=== PATIENT | female | born 1970 | race Two or more races ===

== ENCOUNTER 2024-09-15 08:59 | Outpatient (AMB) | payer MEDICAID, SELFPAY ==
--- NOTE | 2024-09-15 09:01 | ACNOTE_ITS ---
Vital Signs 09/15/24 09:05 Weight 57.663 kg Weight Measurement Method Standing Scale BP 115/62 Blood Pressure Source Automatic Cuff Blood Pressure Location Left Upper Arm Position Sitting Respiration 18 Pulse 85 Pulse Source Monitor Temp 97.7 F Temp Source Oral Pulse Oximetry (%) 97 Oxygen Delivery Method Room Air Allergies/Meds Allergies & Medications Allergies No Known Allergies Allergy (Verified 09/15/24 09:05) Medication Reconciliation flash glucose scanning reader (FreeStyle Fortino 2 Brawley) #1 ea 06/11/24 [Rx Confirmed 09/15/24] flash glucose sensor (FreeStyle Fortino 2 Sensor kit) #2 ea 06/11/24 [Rx Confirmed 09/15/24] blood pressure test kit-medium #1 ea 06/16/24 [Rx Confirmed 09/15/24] blood sugar diagnostic (FreeStyle Lite Strips) #100 ea 06/16/24 [Rx Confirmed 09/15/24] dapagliflozin propanediol 10 mg tablet (Farxiga) 10 mg PO QAM Diabetes #30 tabs 06/16/24 [Rx Confirmed 09/15/24] pen needle, diabetic 29 gauge x 1/2 #100 ea 07/13/24 [Rx Confirmed 09/15/24] tamsulosin 0.4 mg capsule 0.4 mg PO QDAY neprolithiasis 1 month #30 caps 07/13/24 [Rx Confirmed 09/15/24] atorvastatin 40 mg tablet 40 mg PO QPM hyperlipidemia #30 tabs 09/15/24 [Rx] insulin glargine 100 unit/mL (3 mL) subcutaneous pen (Basaglar KwikPen U-100 Insulin) 30 unit (0.3 mL) subcut QPM #15 mL 09/15/24 [Rx] insulin lispro 100 unit/mL subcutaneous pen 8 unit (0.08 mL) subcut TID Diabetes #15 mL 09/15/24 [Rx] lancets (Accu-Chek Softclix Lancets) #100 ea 09/15/24 [Rx] lisinopril 5 mg tablet 5 mg PO QDAY HTN with Diabetes #30 tabs 09/15/24 [Rx] pantoprazole 40 mg tablet,delayed release (Protonix) 40 mg PO QDAY GERD #30 tabs 09/15/24 [Rx] [place] Intake Visit Data Collection New Patient or Established: Established Patient (seen at [facility] within 3 years) Seen by Clinical Staff ONLY (RN/MA): No Pain Present Currently: No Pain scale:: 0 Pain Scale Used: Johnson-Madrigal/Numerical PCP or OBGYN visit in last 3 months: Yes Do You Feel Safe at Home: Yes Authorities Contacted: N/A Smoking Status Smoking Status: Never smoker Immunization / Flu Flu Vaccine in the Last 12 Months: No Flu Vaccine Exclusion Criteria: No Exclusion Criteria Past Medical History Past Medical History NEUROLOGIC: Negative Neurological Disorders or Seizures CARDIAC: Positive Cardiac Disorders and Hypercholesterolemia; Negative Congestive Heart Failure RESPIRATORY: Negative Chronic Obstructive Pulmonary Disease (COPD) GASTROINTESTINAL: Negative Gastrointestinal Disorders GENITOURINARY: Positive Renal Disease; Negative Genitourinary Disorders ENDOCRINE: Positive Endocrine Disorders and Diabetes Mellitus Type 2; Negative Diabetes Mellitus Type 1 HEMATOLOGIC: Negative Blood Disorders OTHER HISTORY: Negative Blood Transfusions, Blood Transfusion Reaction or Anesthesia Reactions Social History SMOKING STATUS: Smoking status: Never smoker ALCOHOL: Alcohol Intake: Never HOUSING: Housing: House LIVES WITH: Lives With: Family Patient Portal Questionaires Social History Living Situation History Housing: House Tobacco History Smoking Status: Never smoker Alcohol History Alcohol Intake: Never Domestic Abuse History Do You Feel Safe at Home: Yes Review of Systems Report any current symptoms Only answer those that you have currently: Past Medical History Past Medical History Have you ever been diagnosed with any of the following: Neurological Problems Seizures: No Cardiology Problems Hypercholesterolemia: Yes Congestive Heart Failure: No Respiratory Problems Chronic Obstructive Pulmonary Disease (COPD): No Genital/Urinary Problems Renal Disease: Yes Endocrine Problems Diabetes Mellitus Type 1: No Diabetes Mellitus Type 2: Yes Other Problems Blood Transfusions: No Blood Transfusion Reaction: No Anesthesia Reactions: No History of Present Illness HPI Narrative Patient is a 53 year old female with a past medical history of diabetes mellitus type II insulin dependent, hypertension, hyperlipidemia, and history of GERD who had a recent hospitalization in May 2024 for hydronephrosis with high grade obstruction s/p stent placement leading to septic shock and VENUS. Patient is returning for her 3 month follow up on diabetes mellitus type 2. Previous office visit, patient was sent with labs for follow up, but no labs were found through [employer] website or after calling company. Unable to verify patients A1c at this time. Patient stated he blood glucose in the AM is between 150-200s and after meals blood glucose spikes to 300s. Currently taking Glargine 20 units HS and Lispro 5 units w/ meals. Patient followed up with Dr. Delarosa for VENUS vs CKD and has a follow up visit September 2024. Patient's J stent has not been removed despite referral with Dr. Rey who is unable to follow up with patient due to insurance logistics, patient has [employer]i-César. Denied pain with urination. Denied hypoglycemic episodes such as increase perspiration, shaking or fatigue. Review of Systems Review of Systems Narrative Review of Systems: General appearance: NO weight change, NO fatigue, NO weakness, NO fever, NO chills, NO night sweats, No cough Skin: NO rash, NO itching, NO sores, NO moles HEENT: NO Trauma, NO nausea, NO vomiting, NO visual changes, NO blurry vision, NO double vision, NO tinnitus, NO vertigo, NO ear discharge, NO rhinorrhea, NO stuffiness, NO sneezing, NO allergy, NO epistaxis. NO Hoarseness, NO sore throat, NO swollen neck. Cardiac: NO Palpitations, NO dyspnea on exertion, NO orthopnea, NO paroxysmal nocturnal dyspnea, NO edema Respiratory: NO Shortness of Breath, NO Wheezing, NO Cough, NO Sputum, NO hemoptysis GI:NO appetite, NO nausea, NO vomiting, NO dysphagia, NO changes in bowel frequency, NO stool color, NO diarrhea, NO constipation, NO hemetemesis, NO hemorrhoids, NO melena, NO hematechezia, NO abdominal pain, NO jaundice Renal: NO frequency, NO hesitancy, NO urgency, NO hematuria, NO nocturia, NO incontinence MSK: NO muscle weakness, NO gout, NO arthritis, NO muscle stiffness Neuro: NO headaches, NO tremors, NO weakness, NO paralysis, NO seizures, NO loss of consciousness, NO numbness. Hem: NO anemia, NO easy bruising/bleeding, NO petechiae, NO purpura Endo: NO heat/cold intolerance, NO excessive sweating, NO polyuria, NO polydipsia, NO polyphagia, NO thyroid problems, NO diabetes Pysch: NO mood, NO anxiety, NO depression Objective/Exam Objective Laboratory: Vitals: BP 115/62, HR 85, RR 18 General Appearance: Alert and Orientated x3, well-nourished female who is sitting on exam room Thorax/Lungs: Symmetrical with good expansion. Chest and back non-tender. Lungs resonant to percussion. Breath sounds vesicular without crackles, wheezes, or rhonchi Cardiovascular/Peripheral Vascular: No jugular venous distention noted. S1 and S2 heart sounds regular, no murmurs or extra heart sounds auscultated. No peripheral edema noted. Abdomen: Bowel sounds are active. No tenderness to deep or light palpation. Assessment & Plan Diagnosis / Problem List (1) Diabetes mellitus type 2, insulin dependent: Status: Acute Assessment & Plan: Patient's blood glucose continues to be elevated with morning glucose readings between 150-200s and postprandial readings over 300. Plan: -Increase Glargine 20 units HS-->Glargine 30 Units -Increase meal Lispro 5 units HS-->Lispro 8 units -Cut back on Glargine to 25 units if morning glucose readings are low. (2) Nephrolithiasis: Status: Acute Assessment & Plan: Nephrolithiasis s/p J-stent of left kidney. Patient was unable to follow up with Dr. Rey due to insurance issues. Denied dysuria. Plan: -Stop Tamsulosin -Will need to find a new urology specialist in [place]. Will follow up with [facility] next week if we were able to find a specialists. (3) Acute kidney injury: Status: Acute Assessment & Plan: Likely resolved as patient followed up with Dr. Delarosa but no follow up labs. Plan: -new set of follow up labs given (4) GERD (gastroesophageal reflux disease): Status: Acute Qualifiers: Esophagitis presence: without esophagitis Qualified Code(s): K21.9 - Gastro-esophageal reflux disease without esophagitis Assessment & Plan: Renewed pantoprazole. (5) Hypertension associated with diabetes: Status: Acute Assessment & Plan: Office visit blood pressure 115/62. Denied headaches or blurry vision. Plan: -Continue Lisinopril 5 mg -Follow up with urine albumin-protein ratio Orders: Referrals Urology Mary Amanda MD N17.9 - Acute kidney failure, unspecified, N20.0 - Calculus of kidney Additional Assessment Plan Master Problem List Diabetes Mellitus Type 2 Insulin dependent Hyperlipidemia due to DM type 2 Hypterension associated w/ diabetes Nephrolithiasis Follow Up: -Labs Pending, CMP, CBC, Urine albumin-protein ratio, A1c, and lipid panel -Following Dr. Delarosa -Need to find Urologists. Health Maintenance: Physical Colonoscopy (age 50-75 yrs) Cervical Cancer Screening (age 21-65 years) Breast Cancer Screening (age 40-74 yrs ) - The patient's plan was discussed with attending Dr Yosef Amanda MD PGY1 Internal Medicine Attending note: I, Nahid Alcantara MD, attest that I was physically present for the barraza portions of the service and evaluated the patient with the resident and I reviewed and discussed the case with the resident and agree with the resident's findings and plans of care as documented above. Follow-up visit. I be self-care reviewed including diet, exercise, footcare, eye care. Previously ordered labs are not available today. Home glucose readings reviewed. We will titrate insulin based on these readings and order labs today. Patient was not able to follow-up with a urologist locally due to insurance issues. Still has stent of left kidney with nephrolithiasis. We will make a new referral today. Has follow-up with nephrology for VENUS, we will recheck renal function on repeat labs. Other issues as noted. Nahid Alcantara MD Physician Billing Established Patient Established Patient: E/M Level 3-CPT 96530 Office Procedures [facility] Level of Care Nursing/Assessment Patient Status: Established Patient Nursing Assessment/Reassessment: Medication Reconciliation, Update PMH in EMR and Vital Signs Coordination of Care: Complex Care and Chronic Disease 1-5, Education Complex Pt/Fam, Results/Orders obtained and Staff clarify orders Established Patient Charge Established Patient Point Assignment: 90 Established Patient Point Charge: EP Level 3 (80-115)
[2024-09-15 09:05] VITALS: BP 115/62; PULSE 85; RESP 18; TEMP 36.5; O2SAT 97
== END 2024-09-15 10:04 | disposition home or self-care (01) ==
LOC: HODAHC 08:59
PROVIDERS: Supervising Provider Internal Medicine
DX: E11.9 Type 2 diabetes mellitus without complications (principal); Z79.4 Long term (current) use of insulin; N20.0 Calculus of kidney; K21.9 Gastro-esophageal reflux disease without esophagitis; I15.2 Hypertension secondary to endocrine disorders; Z79.899 Other long term (current) drug therapy
CPT/HCPCS: 99213; G0463

== ENCOUNTER → 2024-12-06 | Outpatient (BNVA) | payer MEDICAID, SELFPAY | END | disposition home or self-care (01) | PROVIDERS: PCP Internal Medicine; Referring Provider Internal Medicine; Visit Provider Urology | DX: Z96.0 Presence of urogenital implants (principal); Z87.442 Personal history of urinary calculi; I10 Essential (primary) hypertension; E11.9 Type 2 diabetes mellitus without complications; Z79.4 Long term (current) use of insulin; K21.9 Gastro-esophageal reflux disease without esophagitis | CPT/HCPCS: 81003; 99212; G0463 ==

== ENCOUNTER 2024-12-08 11:05 | Day surgery (SDC) | payer MEDICAID, SELFPAY ==
[2024-12-07 15:27] VITALS: BMI 25.0
[2024-12-07 16:00] LABS: Alanine Aminotransferase 19 U/L (10-49); Albumin, Serum 3.9 gm/dL (3.5-5.0); Alkaline Phosphatase 115 U/L (46-116); Anion Gap 2 (7-16); Aspartate Amino Transferase 30 U/L (0-34); BUN/Creatinine Ratio 14 Ratio (12-20); Bilirubin,Total 0.2 mg/dL (0.3-1.2); Blood Urea Nitrogen 23 mg/dL (9-23); Calcium 9.1 mg/dL (8.3-10.6); Calcium (Corrected) 9.2 mg/dL (8.5-10.1); Carbon Dioxide 29.4 mMol/L (20.0-31.0); Chloride 103 mMol/L (98-107); Creatinine (Component) 1.6 mg/dL (0.6-1.3); Estimated Creatinine Clearance 35.7 mL/min (>60); Globulin 3.8 gm/dL (2.3-3.5); Glucose 338 mg/dL (74-106); Osmolality,Calculated 284 (275-295); Potassium 4.8 mMol/L (3.4-5.1); Sodium 134 mMol/L (136-145); Total Protein 7.7 gm/dL (5.7-8.2); eGFR 39 See Note
[2024-12-08] VITALS (8 sets, daily range): BP systolic 103–118; BP diastolic 56–74; PULSE 76–89; RESP 12–14; TEMP 36.2–36.5; O2SAT 96–100; BMI 24.9
--- NOTE | 2024-12-08 13:34 | XR_ITS ---
Examination: Left retrograde pyelogram with without KUB Fluoroscopy AP abdomen 3 views Exam date and time: December 08, 2024 1552 hours INDICATIONS: Renal sonogram June 08, 2024 moderate left hydronephrosis ureteral stent placement today TECHNIQUE AND FINDINGS: 3 spot fluoroscopic films of the abdomen Left ureteral stent satisfactory position Fluoroscopy 43 seconds radiation dose 8.75 milligray IMPRESSION: Left retrograde pyelogram as above
--- NOTE | 2024-12-08 15:01 | ESOP_ITS ---
Date of Procedure 12/08/24 Pre Op Diagnosis Left hydronephrosis status post left ureteral stent over 8 months ago history of recurrent UTI calcified stent Post Op Diagnosis Same Procedure Cystoscopic examination left retrograde pyelogram placement of left safety wire, removal of calcification around the stent in the bladder with the laser, removal of left ureteral stent,ureteroscopy and placement of left ureteral stent 24 cm long 6 Albanian double-J Findings Left hydronephrosis, calcification of distal portion of left ureteral stent in the bladder Procedure Description Indication for procedure this is a 54-year-old female she was admitted in the hospital more than 6 months ago with urosepsis had a placement of the stent she recently came to the office for removal of the stent. Since his stent was placed 8 months ago there is a possibility stent is calcified she was recommended above procedure procedure and complications were discussed with the patient in great detail informed consent is obtained Patient was brought to the operating room in a satisfactory condition after appropriate premedication which she was put on the operating table in a spine position she was appropriately identified by the surgeon and operating room staff site scope and indications of the procedure were reconfirmed with the patient. Next general anesthesia was given uneventfully at this time patient received perioperative antibiotics 20 mg of Lasix IV was given for prevention of pyelocalyceal infectious complication and diuresis. Next cystoscope was introduced into the bladder per urethra examination of bladder in all the quadrant was carried out she has calcification around the distal portion of the stent with the 200 ?m laser fiber I was able to remove the calcification around the distal portion of the stent. Next open-ended Pollick catheter was inserted into the left ureteral orifice I placed a safety wire there was a obstruction in the midportion of the ureter left side ultimately I was able to negotiate the safety wire and placed into the upper pole calyx. Stent was removed with a stent grasper. Next I used the semirigid ureteroscope other than inflammation in the mid ureter no stone was identified. Retrograde pyelogram revealed a left hydronephrosis this was done under fluoroscopic examination next ureteroscope was removed over the safety wire I placed 24 cm long 6 Albanian double-J proximal and in the renal pelvis distally in the bladder instrument was withdrawn gently patient after having tolerated the procedure well was sent to recovery room in a satisfactory condition. Patient disposition she is discharged home on pain medication and antibiotics she will follow-up with me in urology office in 2 weeks for stent removal and she will have an ultrasound of the kidneys done at that time Anesthesia GETA Pathology / specimen None Estimated Blood Loss 0.2 Condition Stable Disposition PACU Surgeon Dori Rey MD Surgical Staff Operation Date: 12/08/24 13:30 Case Staff Anesthesiologist: Torsten Chan
--- NOTE | 2024-12-08 15:02 | SUR.PHASEI ---
pt received from OR in recovery bay 8. pt asleep but responds to voice, breathing unlabored on 4l nc. v/s stable. report received from Dr. Chan and Martín GREEN.
--- NOTE | 2024-12-08 15:48 | SUR.PHASEII ---
pt able to tolerate oral fluids without difficulty swallowing or nasuea/vomiting.
--- NOTE | 2024-12-08 16:20 | SUR.PHASEII ---
pt awake and alert, breathing unlabored on room air. v/s stable. pt able to ambulate to wheelchair with steady gait. d/c instructions given with Alejandro in room, all questions answered. pt d/c via wheelchair with all belongings.
== END 2024-12-08 16:20 | disposition home or self-care (01) ==
PROVIDERS: Anesthesiology; PCP Family Medicine; Referring Provider Urology; Visit Provider Urology
PROC: 0TJB8ZZ Inspection of Bladder, Via Natural or Artificial Opening Endoscopic (ICD-10-PCS; CPT 52000; principal; 2024-12-08 13:15)
DX: N13.30 Unspecified hydronephrosis (principal); Z87.440 Personal history of urinary (tract) infections
CPT/HCPCS: 52332; 36415; 74420; 80053; A4217; A4649; C1769; C1889; C1894; C2617; J1100; J1580; J1940; J2704; J2710; J2765; J3010; J3370; J3490; J1596

== ENCOUNTER 2024-12-15 09:20 | Outpatient (AMB) | payer MEDICAID, SELFPAY ==
[2024-12-15 09:34] VITALS: BP 119/78; PULSE 87; RESP 16; TEMP 36.1; O2SAT 99
--- NOTE | 2024-12-15 09:34 | ACNOTE_ITS ---
Vital Signs 12/15/24 09:34 Weight 60.384 kg Weight Measurement Method Standing Scale BP 119/78 Blood Pressure Source Automatic Cuff Blood Pressure Location Left Upper Arm Position Sitting Respiration 16 Pulse 87 Pulse Source Monitor Temp 96.9 F Temp Source Temporal Artery Scan Pulse Oximetry (%) 99 Oxygen Delivery Method Room Air Allergies/Meds Allergies & Medications Allergies No Known Allergies Allergy (Verified 12/15/24 09:35) Medication Reconciliation insulin lispro 100 unit/mL subcutaneous pen (Admelog SoloStar U-100 Insulin lispro) 1 sliding scale dose subcut USEASDIRECTD 12/08/24 [History Confirmed 12/15/24] nitrofurantoin monohydrate/macrocrystals 100 mg capsule (Macrobid) 100 mg PO BID #10 caps 12/08/24 [Rx Confirmed 12/15/24] tramadol 50 mg tablet 50 mg PO Q8H PRN pain #14 tabs 12/08/24 [Rx Confirmed 12/15/24] atorvastatin 40 mg tablet 40 mg PO QPM hyperlipidemia #30 tabs 12/15/24 [Rx] dapagliflozin propanediol 5 mg tablet (Farxiga) 5 mg PO QAM #30 tabs 12/15/24 [Rx] insulin degludec 100 unit/mL (3 mL) subcutaneous pen 30 unit (0.3 mL) subcut QHS diabetes #15 mL 12/15/24 [Rx] lisinopril 5 mg tablet 5 mg PO QDAY HTN with Diabetes #30 tabs 12/15/24 [Rx] pantoprazole 40 mg tablet,delayed release (Protonix) 40 mg PO QDAY GERD #30 tabs 12/15/24 [Rx] pen needle, diabetic 31 gauge x 5/16 (Comfort EZ Pen Chadwick) #100 ea 12/15/24 [Rx] MA Intake Visit Data Collection New Patient or Established: Established Patient (seen at [facility] within 3 years) Seen by Clinical Staff ONLY (RN/MA): No Pain Present Currently: No Pain scale:: 0 Pain Scale Used: JohnsonCarlitos/Numerical Stakes Player Required: No PCP or OBGYN visit in last 3 months: Yes Hx Now: No Do You Feel Safe at Home: Yes Authorities Contacted: N/A Smoking Status Smoking Status: Never smoker Immunization / Flu Flu Vaccine in the Last 12 Months: No Flu Vaccine Exclusion Criteria: No Exclusion Criteria Past Medical History Past Medical History NEUROLOGIC: Negative Neurological Disorders or Seizures CARDIAC: Positive Cardiac Disorders, Hypercholesterolemia and Hypertension; Negative Peripheral Vascular Disease, Congestive Heart Failure or Varicose Veins RESPIRATORY: Negative Chronic Obstructive Pulmonary Disease (COPD) GASTROINTESTINAL: Negative Gastrointestinal Disorders GENITOURINARY: Positive Renal Disease and Kidney Stones; Negative Genitourinary Disorders REPRODUCTIVE: Positive Previous Pregnancies ENDOCRINE: Positive Endocrine Disorders and Diabetes Mellitus Type 2; Negative Diabetes Mellitus Type 1 HEMATOLOGIC: Negative Blood Disorders OTHER HISTORY: Positive Hospitalization; Negative Autoimmune Disease, Shingles, Blood Transfusions, Blood Transfusion Reaction, Anesthesia Reactions or Cancer Family History FAMILY HISTORY: Negative Family Psychiatric Problems, Family Respiratory Disorders, Family Cardiac Disorders, Family Gastrointestinal Problems, Family Cancer, Family Surgery or Family Anesthesia Reaction Social History SMOKING STATUS: Smoking status: Never smoker ALCOHOL: Alcohol Intake: Never HOUSING: Housing: House LIVES WITH: Lives With: Family Patient Virgil Cindyjez Social History Living Situation History Housing: House Tobacco History Smoking Status: Never smoker Alcohol History Alcohol Intake: Never Domestic Abuse History Do You Feel Safe at Home: Yes Review of Systems Report any current symptoms Only answer those that you have currently: Past Medical History Past Medical History Have you ever been diagnosed with any of the following: Neurological Problems Seizures: No Cardiology Problems Peripheral Vascular Disease: No Hypercholesterolemia: Yes Congestive Heart Failure: No Hypertension: Yes Varicose Veins: No Respiratory Problems Chronic Obstructive Pulmonary Disease (COPD): No Genital/Urinary Problems Renal Disease: Yes Kidney Stones: Yes Reproductive Problems Previous Pregnancies: Yes Endocrine Problems Diabetes Mellitus Type 1: No Diabetes Mellitus Type 2: Yes Other Problems Hospitalization: Yes Autoimmune Disease: No Shingles: No Blood Transfusions: No Blood Transfusion Reaction: No Anesthesia Reactions: No Cancer: No History of Present Illness HPI Narrative Patient is a 53 year old female with a past medical history of diabetes mellitus type II insulin dependent, hypertension, hyperlipidemia, and history of GERD who is following up on outpatient lab results for A1c, CBC, CMP, and Albumin- Creatine ratio. Patient returned to the office after multiple failed attempts to reach patient to schedule urology appointment in [place], patient eventually did lose initial appointment in [place] after she failed to return call. Patient stated she followed up with Dr. Delarosa for previous VENUS, now likely progressing into CKD based on most recent labs. Patient eventually was able to follow up with Dr. Rey (initial referral made in June of 2024) for left stent placed during a hospitalization in June of 2024. Per chart review from urology, patient had a cystoscopic examination with removal of calcifications around stent in the bladder w/ laser and left ureter stent removal followed by placement once agiPatient is a 53 year old female with a past medical history of diabetes mellitus type II insulin dependent, hypertension, hyperlipidemia, and history of GERD who is following up on outpatient labs from A1c, CBC, CMP, and Albumin-Creatine ratio. Patient returned to the office after multiple failed attempts to reach patient to schedule urology appointment in [place], patient eventually did lose initial appointment in [place] after she failed to return call. Patient stated she followed up with Dr. Delarosa for previous VENUS, now likely progressing into CKD based on most recent labs. Patient eventually was able to follow up with Dr. Rey (initial referral made in May of 2024) for left stent placed during a hospitalization in May of 2024. Per chart review from urology, patient had a cystoscopic examination with removal of calcifications around stent in the bladder w/ laser and left ureter stent removal followed by placement once again of new stent. Patient has a follow up appointment in December with Dr. Rey. Patient deneid any pain since procedure. Denied any dysuria. Denied blood in urine. Patient followed up with outpatient labs. Dated for September 2024, A1c 12.4. Patient continues to take Glargine at night 35 units and 10 units with meals. Fasting glucose of 244. Spoke at length that an A1c of 12.4 was elevated. Counseled on diet. Spoke of changes to medication from Glargine to Decludec starting dose of 30 units at night. Patient denied hypoglycemic episodes, lowest number is 88. Patient stated she was experiencing polydipsia and polyuria. Increased bread intake, spoke about reducing amount of flour and bread in diet. Restart Farxiga. Continues to take Lisinopril for hypertension and Atorvastatin for hyperlipidemia. Denied any dizziness or syncopal episodes. Review of Systems Review of Systems Narrative Review of Systems: General appearance: NO weight change, NO fatigue, NO weakness, NO fever, NO chills, NO night sweats, No cough Skin: NO rash, NO itching, NO sores, NO moles HEENT: NO Trauma, NO nausea, NO vomiting, NO visual changes, NO blurry vision, NO double vision, NO tinnitus, NO vertigo, NO ear discharge, NO rhinorrhea, NO stuffiness, NO sneezing, NO allergy, NO epistaxis. NO Hoarseness, NO sore throat, NO swollen neck. Cardiac: NO Palpitations, NO dyspnea on exertion, NO orthopnea, NO paroxysmal nocturnal dyspnea, NO edema Respiratory: NO Shortness of Breath, NO Wheezing, NO Cough, NO Sputum, NO hemoptysis GI:NO appetite, NO nausea, NO vomiting, NO dysphagia, NO changes in bowel frequency, NO stool color, NO diarrhea, NO constipation, NO hemetemesis, NO hemorrhoids, NO melena, NO hematechezia, NO abdominal pain, NO jaundice Renal: NO frequency, NO hesitancy, NO urgency, NO hematuria, NO nocturia, NO incontinence MSK: NO muscle weakness, NO gout, NO arthritis, NO muscle stiffness Neuro: NO headaches, NO tremors, NO weakness, NO paralysis, NO seizures, NO loss of consciousness, NO numbness. Hem: NO anemia, NO easy bruising/bleeding, NO petechiae, NO purpura Endo: NO heat/cold intolerance, NO excessive sweating, NO polyuria, NO polydipsia, NO polyphagia, NO thyroid problems, NO diabetes Pysch: NO mood, NO anxiety, NO depression Objective/Exam Narrative Physical exam: Vitals: T 96.9, BP 119/78, HR 87, RR 16 General Appearance: Alert and Orientated x3, well-nourished male who is sitting on exam room Thorax/Lungs: Symmetrical with good expansion. Chest and back non-tender. Lungs resonant to percussion. Breath sounds vesicular without crackles, wheezes, or rhonchi Cardiovascular/Peripheral Vascular: No jugular venous distention noted. S1 and S2 heart sounds regular, no murmurs or extra heart sounds auscultated. No peripheral edema noted. Abdomen: Bowel sounds are active. No tenderness to deep or light palpation. Foot Exam: sensation intact at the heel, near 1, 3, and 5 metatarsals. Assessment & Plan Diagnosis / Problem List (1) Diabetes mellitus type 2, insulin dependent: Status: Acute Assessment & Plan: Patient's fasting blood glucose readings have remained elevated at 200, 180, and 190. Fasting Glucose reading for September 2024-244 and Glucose reading in Nov 2024 of 338. A1c (Sep 2024) 12.4. Counseled patient on balanced diet. Added Farxiga 5 mg once daily. STOP Glargine, START Dgludec 30 units, and continue Lispro 10 units with meals. Goal of 80-130 for fasting glucose. Blood glucose after meals under 200. Plan: -Degludec 30 units at night -Lispor 10 units w/ meals -Farxiga 5 mg once a day -1 month follow up with fasting glucose numbers. -3 month follow up w/ CMP and A1c. (2) Stage 3b chronic kidney disease due to type 2 diabetes mellitus: Status: Acute Assessment & Plan: During previous hospital admission in May of 2024 for DKA and VENUS secondary to nephrolithiasis complicated by hydronephrosis, patient's GFR of 50 on discharge with improving Cr. Given greater than 6 months with minimal improvement of GFR, likely CKD secondary by diabetes mellitus and history of hydronephrosis, in addition, elevated albumin-cr ratio. Two previous labs since discharge show low GFR levels. September 2024 BUN 25, Cr 1.49, and GFR of 42 and 2024 BUN 23, Cr 1.6, and GFR 39-->BUN/Cr ratio 14.375. Plan: Farxiga 5 mg PO Qday Glucose management (3) Hypertension associated with diabetes: Status: Acute Assessment & Plan: Elevated Urine Albumin/Cr ratio of 50. Blood pressure 119/78 on this office visit. Patient denied dizziness or syncope. Plan: -Continue Lisinopril 5 mg (4) Nephrolithiasis: Status: Acute Assessment & Plan: Nephrolithiasis complicated by hydronephrosis s/p J-stent of left kidney. Patient had a pending referral with urology in [place], did not follow up in September. On December 08, 2024, patient was able to follow up with Dr. Rey and she had removal old stent and placement on new stent. Plan: -Following Dr. Rey -Follow up appointment scheduled for December 2024 (5) GERD (gastroesophageal reflux disease): Status: Acute Qualifiers: Esophagitis presence: without esophagitis Qualified Code(s): K21.9 - Gastro-esophageal reflux disease without esophagitis Assessment & Plan: Renewed pantoprazole. Plan: Continue Pantoprazole, reassess in February if needs to be D/C Plan Master Problem List Diabetes Mellitus Type 2 Insulin dependent Hyperlipidemia due to DM type 2 Hypterension associated w/ diabetes Nephrolithiasis Follow Up: -Follow up in 1 month on glucose numbers after starting Degludec; A1c and BMP for February 2025 -Following Dr. Delarosa Health Maintenance: Physical Colonoscopy (age 50-75 yrs) Cervical Cancer Screening (age 21-65 years) Breast Cancer Screening (age 40-74 yrs ) - The patient's plan was discussed with attending Dr Yosef Amanda MD PGY1 Internal Medicine Office Procedures [facility] Level of Care Nursing/Assessment Patient Status: Established Patient Nursing Assessment/Reassessment: Medication Reconciliation, Update PMH in EMR and Vital Signs Coordination of Care: Complex Care and Chronic Disease 1-5, Consent,records obtained, informed consent, Education Simp Pt/Fam and Staff clarify orders Established Patient Charge Established Patient Point Assignment: 85 Established Patient Point Charge: EP Level 3 (80-115)
== END 2024-12-15 10:24 | disposition home or self-care (01) ==
LOC: HODAHC 09:20
PROVIDERS: Supervising Provider Internal Medicine
DX: E11.22 Type 2 diabetes mellitus with diabetic chronic kidney disease (principal); I12.9 Hypertensive chronic kidney disease with stage 1 through stage 4 chronic kidney disease, or unspecified chronic kidney disease; N18.32 Chronic kidney disease, stage 3b; Z79.4 Long term (current) use of insulin; Z79.84 Long term (current) use of oral hypoglycemic drugs; K21.9 Gastro-esophageal reflux disease without esophagitis; E78.5 Hyperlipidemia, unspecified; N13.2 Hydronephrosis with renal and ureteral calculous obstruction
CPT/HCPCS: 99213; G0463

== ENCOUNTER → 2024-12-28 | Outpatient (BNVA) | payer MEDICAID, SELFPAY | END | disposition home or self-care (01) | PROVIDERS: PCP Family Medicine; Referring Provider Family Medicine; Visit Provider Urology | DX: N35.92 Unspecified urethral stricture, female (principal); Z96.0 Presence of urogenital implants; I10 Essential (primary) hypertension; E78.00 Pure hypercholesterolemia, unspecified; E11.9 Type 2 diabetes mellitus without complications | CPT/HCPCS: 52281; 81003; 96372; A4217; A4649; C1894; J1580; A9270 ==

== ENCOUNTER 2025-02-23 10:43 | Outpatient (AMB) | payer MEDICAID, SELFPAY ==
[2025-02-23 11:01] VITALS: BP 112/73; PULSE 87; RESP 18; TEMP 36.8; O2SAT 98; BMI 26.1
--- NOTE | 2025-02-23 11:01 | PD.RESCLINIC ---
Vital Signs 02/23/25 11:01 Height 5 ft 1.81 in Height Method Stated Weight 64.41 kg Weight Measurement Method Standing Scale BMI 26.1 BP 112/73 Blood Pressure Source Automatic Cuff Blood Pressure Location Right Upper Arm Position Sitting Respiration 18 Pulse 87 Pulse Source Monitor Temp 98.2 F Temp Source Temporal Artery Scan Pulse Oximetry (%) 98 Oxygen Delivery Method Room Air Allergies/Meds Allergies & Medications Allergies No Known Allergies Allergy (Verified 02/23/25 11:02) Medication Reconciliation atorvastatin 40 mg tablet 40 mg PO QHS #30 tabs 02/23/25 [Rx] azithromycin 500 mg tablet See Rx Instructions PO .COMPLEX #3 tabs 02/23/25 [Rx] dapagliflozin propanediol 5 mg tablet (Farxiga) 5 mg PO QAM #30 tabs 02/23/25 [Rx] insulin degludec 100 unit/mL (3 mL) subcutaneous pen 35 unit (0.35 mL) subcut QHS #15 mL 02/23/25 [Rx] insulin lispro 100 unit/mL subcutaneous pen 10 unit (0.1 mL) subcut TID #15 mL 02/23/25 [Rx] lisinopril 5 mg tablet 5 mg PO QDAY #30 tabs 02/23/25 [Rx] pantoprazole 40 mg tablet,delayed release 40 mg PO QDAY #30 tabs 02/23/25 [Rx] pen needle, diabetic 29 gauge x 1/2 (Comfort EZ Pen Leslie) #100 ea 02/23/25 [Rx] MA Intake Visit Data Collection New Patient or Established: Established Patient (seen at [facility] within 3 years) Seen by Clinical Staff ONLY (RN/MA): No Pain Present Currently: No Pain scale:: 0 Pain Scale Used: Johnson-Madrigal/Numerical Perforating Machine Operator Required: No PCP or OBGYN visit in last 3 months: No Hx Now: No Do You Feel Safe at Home: Yes Authorities Contacted: N/A Smoking Status Smoking Status: Never smoker Immunization / Flu Flu Vaccine in the Last 12 Months: No Flu Vaccine Exclusion Criteria: No Exclusion Criteria Past Medical History Past Medical History NEUROLOGIC: Negative Neurological Disorders or Seizures CARDIAC: Positive Cardiac Disorders, Hypercholesterolemia and Hypertension; Negative Peripheral Vascular Disease, Congestive Heart Failure or Varicose Veins RESPIRATORY: Negative Chronic Obstructive Pulmonary Disease (COPD) GASTROINTESTINAL: Negative Gastrointestinal Disorders GENITOURINARY: Positive Renal Disease and Kidney Stones; Negative Genitourinary Disorders REPRODUCTIVE: Positive Previous Pregnancies ENDOCRINE: Positive Endocrine Disorders and Diabetes Mellitus Type 2; Negative Diabetes Mellitus Type 1 HEMATOLOGIC: Negative Blood Disorders OTHER HISTORY: Positive Hospitalization; Negative Autoimmune Disease, Shingles, Blood Transfusions, Blood Transfusion Reaction, Anesthesia Reactions or Cancer Family History FAMILY HISTORY: Negative Family Psychiatric Problems, Family Respiratory Disorders, Family Cardiac Disorders, Family Gastrointestinal Problems, Family Cancer, Family Surgery or Family Anesthesia Reaction Social History SMOKING STATUS: Smoking status: Never smoker ALCOHOL: Alcohol Intake: Never HOUSING: Housing: House LIVES WITH: Lives With: Family Patient Portal [facility] Social History Living Situation History Housing: House Tobacco History Smoking Status: Never smoker Alcohol History Alcohol Intake: Never Domestic Abuse History Do You Feel Safe at Home: Yes Review of Systems Report any current symptoms Only answer those that you have currently: Past Medical History Past Medical History Have you ever been diagnosed with any of the following: Neurological Problems Seizures: No Cardiology Problems Peripheral Vascular Disease: No Hypercholesterolemia: Yes Congestive Heart Failure: No Hypertension: Yes Varicose Veins: No Respiratory Problems Chronic Obstructive Pulmonary Disease (COPD): No Genital/Urinary Problems Renal Disease: Yes Kidney Stones: Yes Reproductive Problems Previous Pregnancies: Yes Endocrine Problems Diabetes Mellitus Type 1: No Diabetes Mellitus Type 2: Yes Other Problems Hospitalization: Yes Autoimmune Disease: No Shingles: No Blood Transfusions: No Blood Transfusion Reaction: No Anesthesia Reactions: No Cancer: No History of Present Illness HPI Narrative Ms. Velez is a 54-year-old female with past medical history of type 2 insulin-dependent diabetes mellitus, hypertension, hyperlipidemia GERD, CKD stage III who came into the clinic for follow-up visit. She has recently been seen by her urologist Dr. Rey and had her ureteral stent removed and has a follow-up in June. She was scheduled for nephrology consultation with Dr. Delarosa in November but missed the appointment. Currently she is complaining of cough with sputum production that is yellow in color for the past 2 weeks. Denies any fever, nausea, vomiting, chills, dyspnea, changes in bowel habits or urinary habits. Patient is concerned in regards to her diabetes. Review of Systems Review of Systems Systems Reviewed: All systems reviewed, normal except as documented Objective/Exam Narrative Physical exam: GENERAL: Alert and oriented x 3. No acute distress. Well-nourished. EYES: EOMI. Anicteric. HEENT: Moist mucous membranes. No scleral icterus. No cervical lymphadenopathy. LUNGS: Very mild bilateral rhonchi. No accessory muscle use. CARDIOVASCULAR: Regular rate and rhythm. No murmur. No JVD. ABDOMEN: Soft, non-tender and non-distended. No palpable masses. EXTREMITIES: All 4 extremeties intact. No edema. Nontender. Able to feel pinprick sensation in bilateral feet. SKIN: No rashes or lesions. Warm. NEUROLOGIC: No focal neurological deficits. CN II-XII grossly intact, but not individually tested. PSYCHIATRIC: Cooperative. Appropriate mood and affect. Assessment & Plan Diagnosis / Problem List (1) Community acquired bacterial pneumonia: Status: Acute Assessment & Plan: Patient has been having cough with yellowish sputum production for more than 2 weeks No dyspnea, fever, chills, nausea or vomiting Plan: Will send Z-Nathaniel for treatment of community-acquired pneumonia versus bronchitis (2) Stage 3b chronic kidney disease due to type 2 diabetes mellitus: Status: Acute Assessment & Plan: Patient is on lisinopril 5 mg and Farxiga 5 mg for management of proteinuria stage IIIb CKD Plan: Patient was scheduled to follow-up with nephrology in November but missed the appointment and is looking to reschedule Most recent labs from November show worsening GFR Counseled on diet and nutrition changes along with important follow-up with nephrology Will reorder labs to add urine albumin to creatinine ratio along with CMP (3) Diabetes mellitus type 2, insulin dependent: Status: Acute Assessment & Plan: Patient has uncontrolled diabetes with most recent labs revealing fasting blood sugar of 344 Plan: Patient has log of morning blood glucose with averages being in the 200s She states that she did not enjoy the freestyle zain and that she was taking an off of Ozempic for unknown reasons Will increase insulin degludec to 35 units before bedtime and patient is counseled to increase by 2 units daily until fasting blood glucose is below 120 Patient was counseled on nutritional changes including a diet that is high in protein and low in carbohydrates and to avoid cookies, cakes, sugary beverages, Posta, rice, potatoes or other carbohydrate rich foods Patient was counseled to have follow-up with podiatry and ophthalmology annually to assess for diabetic nephropathy or retinopathy Patient will be referred to endocrinology for further management of type 2 diabetes that is uncontrolled Patient was recommended to follow-up within 1 month after obtaining CMP and A1c. Patient will require strict follow-up and education and counseling in regards to long-term debilitating effects of uncontrolled diabetes mellitus. Orders: Orders Comprehensive Metabolic Panel Today E11.9 - Type 2 diabetes mellitus without complications, Z79.4 - masseur/masseuse (current) use of insulin CBC Today Microalbumin, Ur Rnd w Creat Today E11.22 - Type 2 diabetes mellitus with diabetic chronic kidney disease, N18.32 - Chronic kidney disease, stage 3b Ambulatory Hemoglobin A1C Today E11.9 - Type 2 diabetes mellitus without complications, Z79.4 - skilled nursing (current) use of insulin Referrals Endocrinology Office Procedures [facility] Level of Care Nursing/Assessment Patient Status: Established Patient Nursing Assessment/Reassessment: Medication Reconciliation, Update PMH in EMR and Vital Signs Coordination of Care: Complex Care and Chronic Disease 1-5, Consent,records obtained, informed consent, Education Simp Pt/Fam and Staff clarify orders Established Patient Charge Established Patient Point Assignment: 85 Established Patient Point Charge: Level 3 (80-115)
== END 2025-02-23 11:38 | disposition home or self-care (01) ==
LOC: HODAHC 10:43
PROVIDERS: Supervising Provider Internal Medicine
DX: I12.9 Hypertensive chronic kidney disease with stage 1 through stage 4 chronic kidney disease, or unspecified chronic kidney disease (principal); E11.22 Type 2 diabetes mellitus with diabetic chronic kidney disease; N18.32 Chronic kidney disease, stage 3b; Z79.4 Long term (current) use of insulin; E78.5 Hyperlipidemia, unspecified; K21.9 Gastro-esophageal reflux disease without esophagitis; R05.9 Cough, unspecified
CPT/HCPCS: 99213; G0463

== ENCOUNTER 2025-04-13 10:38 | Outpatient (AMB) | payer MEDICAID, SELFPAY ==
--- NOTE | 2025-04-13 11:05 | PD.RESCLINIC ---
Vital Signs 04/13/25 11:06 Height 1.57 m Height Method Stated Weight 62.823 kg Weight Measurement Method Standing Scale BMI 25.4 BP 124/76 Blood Pressure Source Automatic Cuff Blood Pressure Location Right Upper Arm Position Sitting Respiration 18 Pulse 91 Pulse Source Monitor Temp 98.2 F Temp Source Temporal Artery Scan Pulse Oximetry (%) 98 Oxygen Delivery Method Room Air Allergies/Meds Allergies & Medications Allergies No Known Allergies Allergy (Verified 04/15/25 15:51) Medication Reconciliation atorvastatin 40 mg tablet 40 mg PO QHS #30 tabs 02/23/25 [Rx Confirmed 04/15/25] azithromycin 500 mg tablet See Rx Instructions PO .COMPLEX #3 tabs 02/23/25 [Rx Confirmed 04/15/25] dapagliflozin propanediol 5 mg tablet (Farxiga) 5 mg PO QAM #30 tabs 02/23/25 [Rx Confirmed 04/15/25] insulin lispro 100 unit/mL subcutaneous pen 10 unit (0.1 mL) subcut TID #15 mL 02/23/25 [Rx Confirmed 04/15/25] lisinopril 5 mg tablet 5 mg PO QDAY #30 tabs 02/23/25 [Rx Confirmed 04/15/25] pantoprazole 40 mg tablet,delayed release 40 mg PO QDAY #30 tabs 02/23/25 [Rx Confirmed 04/15/25] pen needle, diabetic 29 gauge x 1/2 (Comfort EZ Pen [place]) #100 ea 02/23/25 [Rx Confirmed 04/15/25] insulin degludec 100 unit/mL (3 mL) subcutaneous pen 35 unit (0.35 mL) subcut QHS #15 mL 04/13/25 [Rx Confirmed 04/15/25] semaglutide 0.25 mg or 0.5 mg (2 mg/3 mL) subcutaneous pen injector 0.25 mg (0.368 mL) subcut QWEEK 3 months #4.784 mL 04/13/25 [Rx Confirmed 04/15/25] MA Intake Visit Data Collection New Patient or Established: Established Patient (seen at [facility] within 3 years) Seen by Clinical Staff ONLY (RN/MA): No Pain Present Currently: No Pain scale:: 0 Pain Scale Used: Johnson-[employer]rigal/Numerical Senior Infrastructure Architect Required: No PCP or OBGYN visit in last 3 months: No Hx Now: No Do You Feel Safe at Home: Yes Authorities Contacted: N/A Smoking Status Smoking Status: Never smoker Immunization / Flu Flu Vaccine in the Last 12 Months: No Flu Vaccine Exclusion Criteria: No Exclusion Criteria Past Medical History Past Medical History NEUROLOGIC: Negative Neurological Disorders or Seizures CARDIAC: Positive Cardiac Disorders, Hypercholesterolemia and Hypertension; Negative Peripheral Vascular Disease, Congestive Heart Failure or Varicose Veins RESPIRATORY: Negative Chronic Obstructive Pulmonary Disease (COPD) GASTROINTESTINAL: Negative Gastrointestinal Disorders GENITOURINARY: Positive Renal Disease and Kidney Stones; Negative Genitourinary Disorders REPRODUCTIVE: Positive Previous Pregnancies ENDOCRINE: Positive Endocrine Disorders and Diabetes Mellitus Type 2; Negative Diabetes Mellitus Type 1 HEMATOLOGIC: Negative Blood Disorders OTHER HISTORY: Positive Hospitalization; Negative Autoimmune Disease, Shingles, Blood Transfusions, Blood Transfusion Reaction, Anesthesia Reactions or Cancer Family History FAMILY HISTORY: Negative Family Psychiatric Problems, Family Respiratory Disorders, Family Cardiac Disorders, Family Gastrointestinal Problems, Family Cancer, Family Surgery or Family Anesthesia Reaction Social History SMOKING STATUS: Smoking status: Never smoker ALCOHOL: Alcohol Intake: Never HOUSING: Housing: House LIVES WITH: Lives With: Family Patient Portal [facility] Social History Living Situation History Housing: House Tobacco History Smoking Status: Never smoker Alcohol History Alcohol Intake: Never Domestic Abuse History Do You Feel Safe at Home: Yes Review of Systems Report any current symptoms Only answer those that you have currently: Past Medical History Past Medical History Have you ever been diagnosed with any of the following: Neurological Problems Seizures: No Cardiology Problems Peripheral Vascular Disease: No Hypercholesterolemia: Yes Congestive Heart Failure: No Hypertension: Yes Varicose Veins: No Respiratory Problems Chronic Obstructive Pulmonary Disease (COPD): No Genital/Urinary Problems Renal Disease: Yes Kidney Stones: Yes Reproductive Problems Previous Pregnancies: Yes Endocrine Problems Diabetes Mellitus Type 1: No Diabetes Mellitus Type 2: Yes Other Problems Hospitalization: Yes Autoimmune Disease: No Shingles: No Blood Transfusions: No Blood Transfusion Reaction: No Anesthesia Reactions: No Cancer: No History of Present Illness HPI Narrative Patient is a 54-year-old female with past medical history of type 2 insulin-dependent diabetes mellitus, hypertension, hyperlipidemia GERD, CKD stage III who came into the clinic for follow-up visit. She has recently been seen by her urologist Dr. Rey and had her ureteral stent removed and has a follow-up in June 2025. 04/13/2025: Patient is here for follow up for diabetes mellitus type 2 insulin dependent. Patient continues to take Tresiba 35 units at night, lispro 10 units, and Fargixa 5 mg qday. Patient brought 24 days of of fasting morning glucose ranging from 85-348 with average fasting glucose of 184. Patient continues to take Tresiba 35 units HS but less adherent to Lispro 10 units with each meal. Patient stated increased polyphagia, explained this is likely secondary to hyperglycemia episodes. Patient is concerned about some weight but no changes noted per chart as previous weight 64 kg and now 62 kg. Updated labs reviewed, A1c (04/11/2025) 11.0 which is a decreased from 12.4 in Nov 2024. Improved Alb/Cr ration from 52 to 32 (04/11/2025). Patient continues to take Lisinopril 10 units and Fargixa 5 mg once daily. Blood pressure for this office visit 124/76. Patient ran out of Tresiba for the last week. Sent refill for Tresiba. Advice patient to call office if not refilled. Ozemic 0.25 mg once weekly prescribed given elevated a1c and hyperglycemia. Holding off new labs for now. Follow up in 1 month. Review of Systems Review of Systems Narrative Review of Systems: General appearance: NO weight change, NO fatigue, NO weakness, NO fever, NO chills, NO night sweats, No cough Skin: NO rash, NO itching, NO sores, NO moles HEENT: NO Trauma, NO nausea, NO vomiting, NO visual changes, NO blurry vision, NO double vision, NO tinnitus, NO vertigo, NO ear discharge, NO rhinorrhea, NO stuffiness, NO sneezing, NO allergy, NO epistaxis. NO Hoarseness, NO sore throat, NO swollen neck. Cardiac: NO Palpitations, NO dyspnea on exertion, NO orthopnea, NO paroxysmal nocturnal dyspnea, NO edema Respiratory: NO Shortness of Breath, NO Wheezing, NO Cough, NO Sputum, NO hemoptysis GI:NO appetite, NO nausea, NO vomiting, NO dysphagia, NO changes in bowel frequency, NO stool color, NO diarrhea, NO constipation, NO hemetemesis, NO hemorrhoids, NO melena, NO hematechezia, NO abdominal pain, NO jaundice Renal: NO frequency, NO hesitancy, NO urgency, NO hematuria, NO nocturia, NO incontinence MSK: NO muscle weakness, NO gout, NO arthritis, NO muscle stiffness Neuro: NO headaches, NO tremors, NO weakness, NO paralysis, NO seizures, NO loss of consciousness, NO numbness. Hem: NO anemia, NO easy bruising/bleeding, NO petechiae, NO purpura Endo: NO heat/cold intolerance, NO excessive sweating, NO polyuria, NO polydipsia, YES polyphagia, NO thyroid problems, YES diabetes Pysch: NO mood, NO anxiety, NO depression Objective/Exam Narrative Physical exam: Vitals: 124/76, HR 91, RR 18 General Appearance: Alert and Orientated x3, well-nourished female who is sitting on exam room Thorax/Lungs: Symmetrical with good expansion. Chest and back non-tender. Lungs resonant to percussion. Breath sounds vesicular without crackles, wheezes, or rhonchi Cardiovascular/Peripheral Vascular: No jugular venous distention noted. S1 and S2 heart sounds regular, no murmurs or extra heart sounds auscultated. No peripheral edema noted. Abdomen: Bowel sounds are active. No tenderness to deep or light palpation. Assessment & Plan Diagnosis / Problem List (1) Hypertension associated with diabetes: Status: Acute Assessment & Plan: Patient continues to have controlled (2) Uncontrolled type 2 diabetes mellitus with insulin therapy: Status: Acute (3) Stage 3b chronic kidney disease due to type 2 diabetes mellitus: Status: Acute (4) GERD (gastroesophageal reflux disease): Status: Acute Qualifiers: Esophagitis presence: without esophagitis Qualified Code(s): K21.9 - Gastro-esophageal reflux disease without esophagitis Office Procedures [facility] Level of Care Nursing/Assessment Patient Status: Established Patient Nursing Assessment/Reassessment: Medication Reconciliation, Update PMH in EMR and Vital Signs Coordination of Care: Complex Care and Chronic Disease 1-5, Consent,records obtained, informed consent, Education Simp Pt/Fam and Staff clarify orders Established Patient Charge Established Patient Point Assignment: 85 Established Patient Point Charge: Level 3 (80-115)
[2025-04-13 11:06] VITALS: BP 124/76; PULSE 91; RESP 18; TEMP 36.8; O2SAT 98; BMI 25.4
== END 2025-04-13 11:53 | disposition home or self-care (01) ==
LOC: HODAHC 10:38
PROVIDERS: Supervising Provider Internal Medicine
DX: I15.2 Hypertension secondary to endocrine disorders (principal); E11.65 Type 2 diabetes mellitus with hyperglycemia; E11.22 Type 2 diabetes mellitus with diabetic chronic kidney disease; I12.9 Hypertensive chronic kidney disease with stage 1 through stage 4 chronic kidney disease, or unspecified chronic kidney disease; N18.32 Chronic kidney disease, stage 3b; Z79.4 Long term (current) use of insulin; Z79.84 Long term (current) use of oral hypoglycemic drugs; Z79.85 Long-term (current) use of injectable non-insulin antidiabetic drugs; K21.9 Gastro-esophageal reflux disease without esophagitis
CPT/HCPCS: 99213; G0463

== ENCOUNTER → 2025-07-05 | Outpatient (BNVA) | payer MEDICAID, SELFPAY | END | disposition home or self-care (01) | PROVIDERS: PCP Family Medicine; Referring Provider Family Medicine; Visit Provider Urology | DX: R10.9 Unspecified abdominal pain (principal); Z87.442 Personal history of urinary calculi; I12.9 Hypertensive chronic kidney disease with stage 1 through stage 4 chronic kidney disease, or unspecified chronic kidney disease; E11.22 Type 2 diabetes mellitus with diabetic chronic kidney disease; N18.30 Chronic kidney disease, stage 3 unspecified | CPT/HCPCS: 81003; 99212; G0463 ==

== ENCOUNTER 2025-09-21 13:33 | Outpatient (AMB) | payer MEDICAID, SELFPAY ==
[2025-09-21 14:07] VITALS: BP 133/84; PULSE 87; RESP 18; TEMP 36.2; O2SAT 97; BMI 27.6
--- NOTE | 2025-09-21 14:07 | ACNOTE_ITS ---
Vital Signs 09/21/25 14:07 Height 1.57 m Height Method Stated Weight 68.096 kg Weight Measurement Method Standing Scale BMI 27.6 BP 133/84 H Blood Pressure Source Automatic Cuff Blood Pressure Location Left Upper Arm Position Sitting Respiration 18 Pulse 87 Pulse Source Monitor Temp 97.2 F Temp Source Temporal Artery Scan Pulse Oximetry (%) 97 Oxygen Delivery Method Room Air Allergies/Meds Allergies & Medications Allergies No Known Allergies Allergy (Verified 09/21/25 14:08) Medication Reconciliation insulin lispro 100 unit/mL subcutaneous pen 10 unit (0.1 mL) subcut TID #15 mL 02/23/25 [Rx Confirmed 09/21/25] pen needle, diabetic 29 gauge x 1/2 (Comfort EZ Pen [place]) #100 ea 02/23/25 [Rx Confirmed 09/21/25] insulin degludec 100 unit/mL (3 mL) subcutaneous pen 35 unit (0.35 mL) subcut QHS #15 mL 04/13/25 [Rx Confirmed 09/21/25] semaglutide 0.25 mg or 0.5 mg (2 mg/3 mL) subcutaneous pen injector 0.25 mg (0.368 mL) subcut QWEEK 3 months #4.784 mL 04/13/25 [Rx Confirmed 09/21/25] atorvastatin 40 mg tablet 40 mg PO QHS #30 tabs 09/21/25 [Rx] dapagliflozin propanediol 10 mg tablet (Farxiga) 10 mg PO QAM #30 tabs 09/21/25 [Rx] lisinopril 10 mg tablet 10 mg PO QDAY #30 tabs 09/21/25 [Rx] pantoprazole 40 mg tablet,delayed release 40 mg PO QDAY #30 tabs 09/21/25 [Rx] MA Intake Visit Data Collection Pain Present Currently: No Pain scale:: 0 PCP or OBGYN visit in last 3 months: Yes Smoking Status Smoking Status: Never smoker Immunization / Flu Flu Vaccine in the Last 12 Months: Yes Flu Vaccine Exclusion Criteria: Already Received Past Medical History Past Medical History NEUROLOGIC: Negative Neurological Disorders or Seizures CARDIAC: Positive Cardiac Disorders, Hypercholesterolemia and Hypertension; Negative Peripheral Vascular Disease, Congestive Heart Failure or Varicose Veins RESPIRATORY: Negative Chronic Obstructive Pulmonary Disease (COPD) GASTROINTESTINAL: Negative Gastrointestinal Disorders GENITOURINARY: Positive Renal Disease and Kidney Stones; Negative Genitourinary Disorders REPRODUCTIVE: Positive Previous Pregnancies ENDOCRINE: Positive Endocrine Disorders and Diabetes Mellitus Type 2; Negative Diabetes Mellitus Type 1 HEMATOLOGIC: Negative Blood Disorders OTHER HISTORY: Positive Hospitalization; Negative Autoimmune Disease, Shingles, Blood Transfusions, Blood Transfusion Reaction, Anesthesia Reactions or Cancer Family History FAMILY HISTORY: Negative Family Psychiatric Problems, Family Respiratory Disorders, Family Cardiac Disorders, Family Gastrointestinal Problems, Family Cancer, Family Surgery or Family Anesthesia Reaction Social History SMOKING STATUS: Smoking status: Never smoker ALCOHOL: Alcohol Intake: Never HOUSING: Housing: House LIVES WITH: Lives With: Family Patient Portal [facility] Social History Living Situation History Housing: House Tobacco History Smoking Status: Never smoker Alcohol History Alcohol Intake: Never Review of Systems Report any current symptoms Only answer those that you have currently: Past Medical History Past Medical History Have you ever been diagnosed with any of the following: Neurological Problems Seizures: No Cardiology Problems Peripheral Vascular Disease: No Hypercholesterolemia: Yes Congestive Heart Failure: No Hypertension: Yes Varicose Veins: No Respiratory Problems Chronic Obstructive Pulmonary Disease (COPD): No Genital/Urinary Problems Renal Disease: Yes Kidney Stones: Yes Reproductive Problems Previous Pregnancies: Yes Endocrine Problems Diabetes Mellitus Type 1: No Diabetes Mellitus Type 2: Yes Other Problems Hospitalization: Yes Autoimmune Disease: No Shingles: No Blood Transfusions: No Blood Transfusion Reaction: No Anesthesia Reactions: No Cancer: No History of Present Illness HPI Narrative Patient is a 54-year-old female with past medical history of type 2 insulin- dependent diabetes mellitus, hypertension, hyperlipidemia GERD, CKD stage III who came into the clinic for follow-up visit. Patient continues to be noncompliant with her diabetes treatment and appears to be not understand severity of her condition therefore medication compliance was discussed with the patient and she agreed to take her short acting insulin lispro 10 units 3 times daily with meals. During prior visit similar discussion was held with the patient however she still remained noncompliant. Patient reports she was seen by her auto electrical technician who increased her lisinopril and Farxiga to 10 mg both. She is otherwise doing fine reports no severe hypoglycemia episodes. She is followed by urology Dr Rey. She reports her blood pressure is well- controlled at home. Her blood glucose is between 100-200 at home, however patient does not check her glucose regularly. Will continue current management and monitor patient, follow-up in 1 months. Review of Systems Review of Systems Systems Reviewed: All systems reviewed, normal except as documented Objective/Exam Narrative Physical exam: Gen: Well-developed and well-nourished. HEENT: NCAT, PERRLA, EOMI, MMM, anicteric conjunctivae. CVS: normal S1 and S2. RRR. No M/R/G. Resp: CTA B/L. No rhonchi, rales, crackles or wheezing. Abd: soft, obese, non-tender, non-distended. BS+ in all 4 quadrants. MSK: Good ROM in BUE & BLE. No edema or rash. Neuro: CN II-XII grossly intact. Strength 5/5 in BUE & BLE. Alert and oriented x3. Psych: appropriate mood and affect. Assessment & Plan Diagnosis / Problem List (1) Stage 3b chronic kidney disease due to type 2 diabetes mellitus: Status: Acute Assessment & Plan: During previous hospital admission in May of 2024 for DKA and VENUS secondary to nephrolithiasis complicated by hydronephrosis, patient's GFR of 50 on discharge with improving Cr. Given greater than 6 months with minimal improvement of GFR, likely CKD secondary by diabetes mellitus and history of hydronephrosis, in addition, elevated albumin-cr ratio. Two previous labs since discharge show low GFR levels. September 2024 BUN 25, Cr 1.49, and GFR of 42 and 2024 BUN 23, Cr 1.6, and GFR 39-->BUN/Cr ratio 14.375. Plan: Please return within 1 month for follow up labs. Farxiga 5 mg PO Qday Glucose management (2) Hypertension associated with diabetes: Status: Acute Assessment & Plan: Patient's blood pressure is stable. Continue with Lisinopril 10 mg once daily as it was increased by her nephrology. Plan: Lisinopril 10 mg once daily refilled. (3) Uncontrolled type 2 diabetes mellitus with insulin therapy: Status: Acute Assessment & Plan: Patient's fasting blood glucose readings continues to be elevated having a large range from 100-200. Patient continues to be noncompliant with her insulin regimen, she does not take her insulin lispro and does not check her glucose regularly. Continue Dgludec 35 units, and continue Lispro 10 units with meals. Continue Ozemic. Please return in 1 month. Farxiga was increased to 10 mg by her auto electrical technician. Plan: -Ozemic. -Degludec 35 units at night. -Lispor 10 units w/ meals. -Farxiga 10 mg once a day. (4) GERD (gastroesophageal reflux disease): Status: Acute Qualifiers: Esophagitis presence: without esophagitis Qualified Code(s): K21.9 - Gastro-esophageal reflux disease without esophagitis Assessment & Plan: Continue Pantoprzole as needed Plan Continue oral Pantoprazole 40 mg daily. Additional Plan Plan of care discussed with attending Dr. Hannon. Nolan Aguilar MD, PGY 3. Disclaimer: This note was dictated by speech recognition. Minor errors in supervisor pipeline may be present due to voice recognition software. Office Procedures [facility] Level of Care Nursing/Assessment Patient Status: Established Patient Nursing Assessment/Reassessment: Medication Reconciliation, Update PMH in EMR and Vital Signs Coordination of Care: Complex Care and Chronic Disease 1-5, Education Complex Pt/Fam and Ref for ancillary service Established Patient Charge Established Patient Point Assignment: 95 Established Patient Point Charge: EP Level 3 (80-115)
== END 2025-09-21 14:17 | disposition home or self-care (01) ==
LOC: HODAHC 13:33
PROVIDERS: Supervising Provider Internal Medicine; Visit Provider Student in an Organized Health Care Education/Training Program
DX: E11.22 Type 2 diabetes mellitus with diabetic chronic kidney disease (principal); I12.9 Hypertensive chronic kidney disease with stage 1 through stage 4 chronic kidney disease, or unspecified chronic kidney disease; N18.32 Chronic kidney disease, stage 3b; Z79.84 Long term (current) use of oral hypoglycemic drugs; Z79.85 Long-term (current) use of injectable non-insulin antidiabetic drugs; K21.9 Gastro-esophageal reflux disease without esophagitis
CPT/HCPCS: 99213; G0463